=== PATIENT | female | born 1940 | race Caucasian/White ===

== ENCOUNTER 2017-10-26 14:58 | Inpatient (IN) | payer OTHER ==
[2017-10-26] MEDS ORDERED: HYDROMORPHONE HCL 2 MG/ML SOL IV ONE (15:12)
[2017-10-26] MEDS ORDERED: HYDROMORPHONE 1 MG/ML SYRINGE ONE (15:14)
[2017-10-26] MEDS ORDERED: KETOROLAC TROMETHAMINE 30 MG/ML SOL IV ONE (16:26)
[2017-10-26] MEDS ORDERED: KETOROLAC TROMETHAMINE 30 MG/ML SOL ONE (16:28)
[2017-10-26] MEDS: SODIUM CHLORIDE 0.9% FLUSH 10 ML SOL IV PRN (16:32)
[2017-10-26 16:33] LABS: BASOPHILS % (AUTO) 1 % (0-3); EOSINOPHILS % (AUTO) 3 % (0-9); HEMATOCRIT 39 % (35-47); MEAN CORPUSCULAR VOLUME 85 fL (81-99); MONOCYTES % (AUTO) 6.4 % (0-12); NEUTROPHILS % (AUTO) 66.7 % (37-80)
[2017-10-26 16:54] LABS: ALBUMIN 3.1 gm/dl (3.4-5.0); CALCIUM 8.8 mg/dl (8.5-10.1); POTASSIUM 3.8 mMol/L (3.5-5.1)
[2017-10-26] MEDS ORDERED: IBUPROFEN 600 MG TAB PO PRN (17:16)
[2017-10-26] MEDS ORDERED: NALOXONE HYDROCHLORIDE 0.4 MG/ML SOL IV PRN (17:17)
[2017-10-26] MEDS: ACETAMINOPHEN 325 MG PO PRN (19:19)
[2017-10-26] MEDS ORDERED: AMITRIPTYLINE 10 MG TAB PO SCH (21:00)
[2017-10-26] MEDS ORDERED: AMITRIPTYLINE 25 MG TAB ONE (21:30)
[2017-10-26] MEDS: CARVEDILOL 12.5 MG TAB PO SCH (21:52)
[2017-10-26] MEDS: ATORVASTATIN 10 MG TAB PO SCH (21:52)
[2017-10-27] MEDS: SODIUM CHLORIDE 0.9% FLUSH 10 ML SOL IV PRN (00:30)
[2017-10-27] MEDS: HYDROMORPHONE HCL 2 MG/ML SOL IV PRN ×3 (00:31→07:52)
[2017-10-27] MEDS ORDERED: ONDANSETRON HCL 4 MG/2 ML SOL IV PRN (04:41)
[2017-10-27] MEDS ORDERED: OMEPRAZOLE 20 MG CAPSULE PO SCH (07:00)
[2017-10-27] MEDS ORDERED: GLIMEPIRIDE 2 MG TAB PO SCH ×2 (08:00→16:00)
[2017-10-27] MEDS: CARVEDILOL 12.5 MG TAB PO SCH ×2 (08:11→20:22)
[2017-10-27] MEDS: PANTOPRAZOLE SODIUM 40 MG ECT PO SCH (08:14)
[2017-10-27] MEDS: POTASSIUM CHLORIDE 10 MEQ TER PO SCH (08:14)
[2017-10-27] MEDS: FUROSEMIDE 40 MG TAB PO SCH (08:14)
[2017-10-27] MEDS ORDERED: SODIUM CHLORIDE 0.9% 1000ML 1,000 ML IV SCH (08:15)
[2017-10-27] MEDS: FLUOXETINE HYDROCHLORIDE 10 MG CAP PO SCH (08:15)
[2017-10-27 08:36] LABS: BASOPHILS % (AUTO) 1 % (0-3); EOSINOPHILS % (AUTO) 1 % (0-9); HEMATOCRIT 41 % (35-47); MEAN CORPUSCULAR VOLUME 87 fL (81-99); MONOCYTES % (AUTO) 8.1 % (0-12); NEUTROPHILS % (AUTO) 75.8 % (37-80)
[2017-10-27 08:49] LABS: CALCIUM 9.3 mg/dl (8.5-10.1); POTASSIUM 4.7 mMol/L (3.5-5.1)
[2017-10-27] MEDS ORDERED: HYDROMORPHONE HCL 2 MG/ML SOL IV PRN (09:00)
[2017-10-27] MEDS ORDERED: PIOGLITAZONE HYDROCHLORIDE 15 MG PO SCH (09:00)
[2017-10-27] MEDS ORDERED: SODIUM CHLORIDE 0.9% 500 ML 500 ML IV ONE ×2 (10:38→10:59)
[2017-10-27 11:17] LABS: APPEARANCE,URINE Clear; BILIRUBIN,URINE NEGATIVE (NEGATIVE); COLOR,URINE Yellow; GLUCOSE, URINE (UA) NEGATIVE (NEGATIVE); KETONES,URINE TRACE (NEGATIVE); LEUKOCYTE ESTERASE ,URINE NEGATIVE (NEGATIVE); NITRATE,URINE NEGATIVE (NEGATIVE); OCCULT BLOOD,URINE NEGATIVE (NEG-TRACE); PH,URINE 5.5; UROBILINOGEN,URINE 0.2 (0.2-1.0 EU)
[2017-10-27] MEDS: SODIUM CHLORIDE 0.9% 1000ML 1,000 ML IV SCH ×3 (11:30→20:10)
[2017-10-27 11:40] LABS: RBC,URINE 0-2 (0-3AV/HPF); WBC,URINE 0-1 (0-5AV/HPF)
[2017-10-27] MEDS: APAP/HYDROCODONE 325/5 TAB PO PRN ×2 (14:04→20:21)
[2017-10-27 16:19] LABS: CALCIUM 8.8 mg/dl (8.5-10.1); POTASSIUM 4.4 mMol/L (3.5-5.1)
[2017-10-27] MEDS: NOVOLOG FLEXPEN SC SCH ×2 (17:13→20:24)
[2017-10-27] MEDS: SODIUM CHLORIDE 0.9% 500 ML 500 ML IV ONE (18:00)
[2017-10-27] MEDS: ATORVASTATIN 10 MG TAB PO SCH (20:22)
[2017-10-27] MEDS ORDERED: AMITRIPTYLINE 25 MG TAB PO SCH (21:00)
[2017-10-28] MEDS: APAP/HYDROCODONE 325/5 TAB PO PRN (02:57)
[2017-10-28] MEDS: SODIUM CHLORIDE 0.9% 1000ML 1,000 ML IV SCH (03:06)
[2017-10-28] MEDS: NOVOLOG FLEXPEN SC SCH ×4 (06:53→20:55)
[2017-10-28 07:31] LABS: BASOPHILS % (AUTO) 1 % (0-3); EOSINOPHILS % (AUTO) 3 % (0-9); HEMATOCRIT 31 % (35-47); MEAN CORPUSCULAR HGB CONC 32.7 gm/dl (32.0-36.0); MEAN CORPUSCULAR VOLUME 86 fL (81-99); MONOCYTES % (AUTO) 8.3 % (0-12); NEUTROPHILS % (AUTO) 68.9 % (37-80)
[2017-10-28 08:06] LABS: CALCIUM 8.4 mg/dl (8.5-10.1); POTASSIUM 3.9 mMol/L (3.5-5.1)
[2017-10-28] MEDS: CARVEDILOL 12.5 MG TAB PO SCH ×2 (09:02→20:52)
[2017-10-28] MEDS: POTASSIUM CHLORIDE 10 MEQ TER PO SCH (09:03)
[2017-10-28] MEDS: FUROSEMIDE 40 MG TAB PO SCH (09:03)
[2017-10-28] MEDS: FLUOXETINE HYDROCHLORIDE 10 MG CAP PO SCH (09:03)
[2017-10-28] MEDS: PANTOPRAZOLE SODIUM 40 MG ECT PO SCH (09:03)
[2017-10-28] MEDS: OXYCODONE HYDROCHLORIDE 5 MG TAB PO PRN ×3 (11:49→23:33)
[2017-10-28] MEDS: ACETAMINOPHEN 325 MG PO PRN ×2 (11:49→17:30)
[2017-10-28] MEDS: ATORVASTATIN 10 MG TAB PO SCH (20:52)
[2017-10-28] MEDS: SODIUM CHLORIDE 0.9% FLUSH 10 ML SOL IV PRN (20:52)
[2017-10-29] MEDS: OXYCODONE HYDROCHLORIDE 5 MG TAB PO PRN ×3 (07:48→21:31)
[2017-10-29] MEDS: NOVOLOG FLEXPEN SC SCH ×4 (07:55→21:35)
[2017-10-29 08:17] LABS: CALCIUM 8.8 mg/dl (8.5-10.1); POTASSIUM 4.1 mMol/L (3.5-5.1)
[2017-10-29] MEDS: POTASSIUM CHLORIDE 10 MEQ TER PO SCH (08:34)
[2017-10-29] MEDS: CARVEDILOL 12.5 MG TAB PO SCH ×2 (08:34→21:21)
[2017-10-29] MEDS: FUROSEMIDE 40 MG TAB PO SCH (08:34)
[2017-10-29] MEDS: PANTOPRAZOLE SODIUM 40 MG ECT PO SCH (08:35)
[2017-10-29] MEDS: FLUOXETINE HYDROCHLORIDE 10 MG CAP PO SCH (08:35)
[2017-10-29] MEDS: ACETAMINOPHEN 325 MG PO PRN (12:09)
[2017-10-29] MEDS: ATORVASTATIN 10 MG TAB PO SCH (21:21)
[2017-10-30 07:03] VITALS: PULSE 78; RESP 18
[2017-10-30 08:37] VITALS: BP 160/87; TEMP 97.4; O2SAT 93
[2017-10-30] MEDS: OXYCODONE HYDROCHLORIDE 5 MG TAB PO PRN (09:14)
[2017-10-30] MEDS: CARVEDILOL 12.5 MG TAB PO SCH (09:14)
[2017-10-30] MEDS: FUROSEMIDE 40 MG TAB PO SCH (09:15)
[2017-10-30] MEDS: PANTOPRAZOLE SODIUM 40 MG ECT PO SCH (09:15)
[2017-10-30] MEDS: POTASSIUM CHLORIDE 10 MEQ TER PO SCH (09:15)
[2017-10-30] MEDS: FLUOXETINE HYDROCHLORIDE 10 MG CAP PO SCH (09:15)
== END 2017-10-30 10:47 | disposition swing bed (61) | DRG 563 ==
LOC: ED 14:58 → UNDOADMOB 17:00 → ACUTE CARE 17:00 → OBSVTOIN 10-27 10:35
PROVIDERS: ADMIT Family Medicine; ATTEND Family Medicine
PROC: 2W39X3Z Immobilization of Left Upper Extremity using Brace (ICD-10-PCS; principal; 2017-10-27)
PROC: F02Z1ZZ Dressing Assessment (ICD-10-PCS; 2017-10-28)
PROC: F02Z0ZZ Bathing/Showering Assessment (ICD-10-PCS; 2017-10-28)
PROC: F02Z3ZZ Grooming/Personal Hygiene Assessment (ICD-10-PCS; 2017-10-28)
DX: S42.252A Displaced fracture of greater tuberosity of left humerus, initial encounter for closed fracture (principal); E11.9 Type 2 diabetes mellitus without complications; W19.XXXA Unspecified fall, initial encounter; M54.2 Cervicalgia; Z86.79 Personal history of other diseases of the circulatory system
CPT/HCPCS: 36415; 71045; 72040; 72125; 73020; 73030; 80048; 80053; 81001; 82962; 85025; 85610; 94762; 96374; 96375; 99284; 99285; J1170; J1885; J2405; J1815

== ENCOUNTER 2017-10-30 08:48 | Inpatient (IN) | payer OTHER ==
[2017-10-30] MEDS ORDERED: ALPRAZOLAM 0.25 MG TAB PO PRN (10:51)
[2017-10-30] MEDS: GLIMEPIRIDE 2 MG TAB PO SCH ×2 (12:14→12:15)
[2017-10-30] MEDS: ACETAMINOPHEN 325 MG PO PRN ×2 (13:45→20:20)
[2017-10-30] MEDS: TRAMADOL HYDROCHLORIDE 50 MG TAB PO PRN ×2 (13:45→20:20)
[2017-10-30] MEDS: ASPIRIN 325 MG TAB PO SCH (20:20)
[2017-10-30] MEDS: ATORVASTATIN 10 MG TAB PO SCH (20:20)
[2017-10-30] MEDS: CARVEDILOL 12.5 MG TAB PO SCH (20:20)
[2017-10-30] MEDS: AMITRIPTYLINE 25 MG TAB PO SCH (20:24)
[2017-10-31] MEDS: TRAMADOL HYDROCHLORIDE 50 MG TAB PO PRN ×3 (02:00→13:52)
[2017-10-31] MEDS: ACETAMINOPHEN 325 MG PO PRN ×4 (02:00→20:39)
[2017-10-31] MEDS: PANTOPRAZOLE SODIUM 40 MG ECT PO SCH (06:39)
[2017-10-31] MEDS: GLIMEPIRIDE 2 MG TAB PO SCH ×2 (08:48)
[2017-10-31] MEDS: POTASSIUM CHLORIDE 10 MEQ TER PO SCH (08:48)
[2017-10-31] MEDS: FUROSEMIDE 40 MG TAB PO SCH (08:48)
[2017-10-31] MEDS: FLUOXETINE HYDROCHLORIDE 10 MG CAP PO SCH (08:48)
[2017-10-31] MEDS: CARVEDILOL 12.5 MG TAB PO SCH ×2 (08:48→20:34)
[2017-10-31] MEDS: MULTIVITAMIN2 1 EA TAB PO SCH (08:49)
[2017-10-31] MEDS ORDERED: MULTIVITAMIN2 1 EA TAB PO SCH (09:00)
[2017-10-31] MEDS ORDERED: PANTOPRAZOLE SODIUM 40 MG ECT PO SCH (09:00)
[2017-10-31] MEDS: PIOGLITAZONE HYDROCHLORIDE 15 MG PO SCH (09:00)
[2017-10-31] MEDS: ASPIRIN 325 MG TAB PO SCH (20:33)
[2017-10-31] MEDS: AMITRIPTYLINE 25 MG TAB PO SCH (20:33)
[2017-10-31] MEDS: ATORVASTATIN 10 MG TAB PO SCH (20:34)
[2017-11-01] MEDS: ACETAMINOPHEN 325 MG PO PRN ×2 (03:06→09:34)
[2017-11-01] MEDS: TRAMADOL HYDROCHLORIDE 50 MG TAB PO PRN ×2 (03:06→09:34)
[2017-11-01] MEDS: PANTOPRAZOLE SODIUM 40 MG ECT PO SCH (06:04)
[2017-11-01] MEDS: GLIMEPIRIDE 2 MG TAB PO SCH ×2 (09:34→16:49)
[2017-11-01] MEDS: POTASSIUM CHLORIDE 10 MEQ TER PO SCH (09:35)
[2017-11-01] MEDS: FUROSEMIDE 40 MG TAB PO SCH (09:35)
[2017-11-01] MEDS: CARVEDILOL 12.5 MG TAB PO SCH ×2 (09:35→20:49)
[2017-11-01] MEDS: MULTIVITAMIN2 1 EA TAB PO SCH (09:36)
[2017-11-01] MEDS: FLUOXETINE HYDROCHLORIDE 10 MG CAP PO SCH (09:36)
[2017-11-01] MEDS: PIOGLITAZONE HYDROCHLORIDE 15 MG PO SCH (13:13)
[2017-11-01] MEDS: OXYCODONE HYDROCHLORIDE 5 MG TAB PO PRN ×2 (14:52→19:53)
[2017-11-01] MEDS: ATORVASTATIN 10 MG TAB PO SCH (20:50)
[2017-11-01] MEDS: AMITRIPTYLINE 25 MG TAB PO SCH (20:50)
[2017-11-01] MEDS: ASPIRIN 325 MG TAB PO SCH (20:50)
[2017-11-02] MEDS: OXYCODONE HYDROCHLORIDE 5 MG TAB PO PRN ×3 (06:22→20:47)
[2017-11-02] MEDS: PANTOPRAZOLE SODIUM 40 MG ECT PO SCH (06:22)
[2017-11-02] MEDS: PIOGLITAZONE HYDROCHLORIDE 15 MG PO SCH (09:14)
[2017-11-02] MEDS: GLIMEPIRIDE 2 MG TAB PO SCH ×3 (09:15→19:05)
[2017-11-02] MEDS: FUROSEMIDE 40 MG TAB PO SCH (09:18)
[2017-11-02] MEDS: FLUOXETINE HYDROCHLORIDE 10 MG CAP PO SCH (09:18)
[2017-11-02] MEDS: POTASSIUM CHLORIDE 10 MEQ TER PO SCH (09:18)
[2017-11-02] MEDS: CARVEDILOL 12.5 MG TAB PO SCH ×2 (09:18→20:16)
[2017-11-02] MEDS: MULTIVITAMIN2 1 EA TAB PO SCH (09:19)
[2017-11-02 10:55] LABS: APPEARANCE,URINE Cloudy; BILIRUBIN,URINE 1+ (NEGATIVE); COLOR,URINE Yellow; GLUCOSE, URINE (UA) NEGATIVE (NEGATIVE); KETONES,URINE TRACE (NEGATIVE); LEUKOCYTE ESTERASE ,URINE 3+ (NEGATIVE); NITRATE,URINE POSITIVE (NEGATIVE); OCCULT BLOOD,URINE 2+ (NEG-TRACE); PH,URINE 6.5
[2017-11-02 11:10] LABS: ICTOTEST,URINE NEGATIVE (NEGATIVE); RBC,URINE UNABLE (0-3AV/HPF); WBC,URINE PACKED (0-5AV/HPF)
[2017-11-02] MEDS: SULFAMETHOXAZOLE/TRIMETHOPRI 800/160 MG PO SCH ×2 (12:17→21:42)
[2017-11-02] MEDS: TRAMADOL HYDROCHLORIDE 50 MG TAB PO PRN (13:42)
[2017-11-02] MEDS: ASPIRIN 325 MG TAB PO SCH (20:16)
[2017-11-02] MEDS: AMITRIPTYLINE 25 MG TAB PO SCH (20:16)
[2017-11-02] MEDS: ATORVASTATIN 10 MG TAB PO SCH (20:16)
[2017-11-03] MEDS: OXYCODONE HYDROCHLORIDE 5 MG TAB PO PRN ×3 (04:41→21:12)
[2017-11-03] MEDS: PANTOPRAZOLE SODIUM 40 MG ECT PO SCH (06:02)
[2017-11-03 08:19] VITALS: RESP 20
[2017-11-03] MEDS: PIOGLITAZONE HYDROCHLORIDE 15 MG PO SCH (08:45)
[2017-11-03] MEDS: CARVEDILOL 12.5 MG TAB PO SCH ×2 (08:46→21:12)
[2017-11-03] MEDS: GLIMEPIRIDE 2 MG TAB PO SCH ×3 (08:46→16:41)
[2017-11-03] MEDS: POTASSIUM CHLORIDE 10 MEQ TER PO SCH (08:46)
[2017-11-03] MEDS: FLUOXETINE HYDROCHLORIDE 10 MG CAP PO SCH (08:47)
[2017-11-03] MEDS: FUROSEMIDE 40 MG TAB PO SCH (08:47)
[2017-11-03] MEDS: MULTIVITAMIN2 1 EA TAB PO SCH (08:47)
[2017-11-03] MEDS: SULFAMETHOXAZOLE/TRIMETHOPRI 800/160 MG PO SCH ×2 (08:51→21:12)
[2017-11-03] MEDS: TRAMADOL HYDROCHLORIDE 50 MG TAB PO PRN ×3 (08:51→23:12)
[2017-11-03] MEDS: ACETAMINOPHEN 325 MG PO PRN ×2 (13:03→23:12)
[2017-11-03] MEDS: AMITRIPTYLINE 25 MG TAB PO SCH (21:12)
[2017-11-03] MEDS: ASPIRIN 325 MG TAB PO SCH (21:12)
[2017-11-03] MEDS: ATORVASTATIN 10 MG TAB PO SCH (21:12)
[2017-11-04] MEDS: TRAMADOL HYDROCHLORIDE 50 MG TAB PO PRN ×2 (06:24→12:32)
[2017-11-04] MEDS: PANTOPRAZOLE SODIUM 40 MG ECT PO SCH (06:24)
[2017-11-04] MEDS: ACETAMINOPHEN 325 MG PO PRN ×2 (06:24→12:32)
[2017-11-04 08:08] VITALS: BP 129/66; PULSE 62; TEMP 97.6; O2SAT 99
[2017-11-04] MEDS: GLIMEPIRIDE 2 MG TAB PO SCH ×2 (09:03→09:25)
[2017-11-04] MEDS: PIOGLITAZONE HYDROCHLORIDE 15 MG PO SCH (09:03)
[2017-11-04] MEDS: SULFAMETHOXAZOLE/TRIMETHOPRI 800/160 MG PO SCH (09:05)
[2017-11-04] MEDS: FUROSEMIDE 40 MG TAB PO SCH (09:05)
[2017-11-04] MEDS: CARVEDILOL 12.5 MG TAB PO SCH (09:05)
[2017-11-04] MEDS: POTASSIUM CHLORIDE 10 MEQ TER PO SCH (09:05)
[2017-11-04] MEDS: FLUOXETINE HYDROCHLORIDE 10 MG CAP PO SCH (09:06)
[2017-11-04] MEDS: MULTIVITAMIN2 1 EA TAB PO SCH (09:06)
== END 2017-11-04 13:25 | disposition home or self-care (01) | DRG 560 ==
LOC: ACUTE CARE 10:52
PROVIDERS: ADMIT Family Medicine; ATTEND Family Medicine
PROC: F01ZDFZ Gait and/or Balance Assessment using Assistive, Adaptive, Supportive or Protective Equipment (ICD-10-PCS; principal; 2017-10-30)
PROC: F02Z1ZZ Dressing Assessment (ICD-10-PCS; 2017-10-30)
PROC: F02Z0ZZ Bathing/Showering Assessment (ICD-10-PCS; 2017-10-30)
PROC: F02Z3ZZ Grooming/Personal Hygiene Assessment (ICD-10-PCS; 2017-10-30)
DX: S42.212D Unspecified displaced fracture of surgical neck of left humerus, subsequent encounter for fracture with routine healing (principal); N39.0 Urinary tract infection, site not specified; E11.9 Type 2 diabetes mellitus without complications; I16.0 Hypertensive urgency
CPT/HCPCS: 81001; 82962; 87077; 87088; 87186; 94760; A9270; A9270-GY

== ENCOUNTER 2017-11-17 09:33 | Outpatient (CLI) | payer OTHER ==
[2017-11-04 08:08] VITALS: O2SAT 99
== END 2017-11-17 09:34 | disposition home or self-care (01) | DRG 561 ==
LOC: RAD 09:33
PROVIDERS: ATTEND Orthopaedic Surgery
DX: S42.252D Displaced fracture of greater tuberosity of left humerus, subsequent encounter for fracture with routine healing (principal); S42.212D Unspecified displaced fracture of surgical neck of left humerus, subsequent encounter for fracture with routine healing
CPT/HCPCS: 73030

== ENCOUNTER 2017-12-15 11:25 | Outpatient (CLI) | payer OTHER ==
[2017-12-02 11:40] VITALS: O2SAT 88
== END 2017-12-15 11:26 | disposition home or self-care (01) | DRG 561 ==
LOC: CONVCARE 11:25
PROVIDERS: ATTEND Orthopaedic Surgery
DX: S42.202D Unspecified fracture of upper end of left humerus, subsequent encounter for fracture with routine healing (principal); E11.9 Type 2 diabetes mellitus without complications; Z79.4 Long term (current) use of insulin
CPT/HCPCS: 73030

== ENCOUNTER 2017-12-28 16:36 | Emergency (ER) | payer OTHER ==
[2017-12-28 16:41] VITALS: BP 153/95; PULSE 86; RESP 18; TEMP 97.6; O2SAT 98
[2017-12-28] MEDS ORDERED: DOXYCYCLINE 100 MG TAB PO ONE (17:07)
[2017-12-28] MEDS ORDERED: DOXYCYCLINE 100 MG TAB ONE (17:26)
== END 2017-12-28 17:35 | disposition home or self-care (01) | DRG 607 ==
LOC: ED 16:36
DX: R21 Rash and other nonspecific skin eruption (principal)
CPT/HCPCS: 99282; A9270-GY

== ENCOUNTER 2018-02-02 10:55 | Outpatient (CLI) | payer OTHER ==
[2017-12-28 16:41] VITALS: O2SAT 98
== END 2018-02-02 10:56 | disposition home or self-care (01) | DRG 561 ==
LOC: CONVCARE 10:55
PROVIDERS: ATTEND Orthopaedic Surgery
DX: S42.202D Unspecified fracture of upper end of left humerus, subsequent encounter for fracture with routine healing (principal)
CPT/HCPCS: 73030

== ENCOUNTER 2018-02-06 18:15 | Emergency (ER) | payer OTHER ==
[2018-02-06] MEDS: SODIUM CHLORIDE 0.9% 1000ML 1,000 ML IV ONE ×2 (18:23→18:32)
[2018-02-06 18:31] LABS: BASOPHILS % (AUTO) 1 % (0-3); EOSINOPHILS % (AUTO) 1 % (0-9); HEMATOCRIT 43 % (35-47); HEMOGLOBIN 14.4 gm/dl (12.0-15.5); LYMPHOCYTES % (AUTO) 24.6 % (10-50); MEAN CORPUSCULAR HEMOGLOBIN 27.5 pg (27.0-32.0); MEAN CORPUSCULAR HGB CONC 33.6 gm/dl (32.0-36.0); MEAN CORPUSCULAR VOLUME 82 fL (81-99); MONOCYTES % (AUTO) 8.2 % (0-12); NEUTROPHILS % (AUTO) 65.8 % (37-80)
[2018-02-06] MEDS ORDERED: SODIUM CHLORIDE 0.9% 1000ML 1,000 ML IV ONE (18:32)
[2018-02-06] MEDS ORDERED: SODIUM CHLORIDE 0.9% FLUSH 10 ML SOL IV PRN (18:38)
[2018-02-06 18:52] LABS: ALBUMIN 3.4 gm/dl (3.4-5.0); BILIRUBIN,TOTAL 0.6 mg/dl (0.2-1.0); CALCIUM 8.9 mg/dl (8.5-10.1); CARBON DIOXIDE 32.2 mEq/L (21-32); CREATININE 1.98 mg/dl (0.60-1.00); POTASSIUM 3.2 mMol/L (3.5-5.1); TOTAL PROTEIN 7.2 gm/dl (6.4-8.2)
[2018-02-06 19:15] VITALS: RESP 16; TEMP 97.3
[2018-02-06] MEDS ORDERED: ONDANSETRON HCL 4 MG/2 ML SOL ONE (19:30)
[2018-02-06] MEDS ORDERED: ONDANSETRON HCL 4 MG/2 ML SOL IV ONE (19:32)
[2018-02-06] MEDS ORDERED: POTASSIUM CHLORIDE 2 MEQ/ML SOL IV ONE (19:52)
[2018-02-06 19:55] LABS: APPEARANCE,URINE Clear; BILIRUBIN,URINE NEGATIVE (NEGATIVE); COLOR,URINE Yellow; GLUCOSE, URINE (UA) NEGATIVE (NEGATIVE); KETONES,URINE NEGATIVE (NEGATIVE); LEUKOCYTE ESTERASE ,URINE TRACE (NEGATIVE); NITRATE,URINE NEGATIVE (NEGATIVE); OCCULT BLOOD,URINE NEGATIVE (NEG-TRACE); PH,URINE 5.5; UROBILINOGEN,URINE 0.2 (0.2-1.0 EU)
[2018-02-06] MEDS ORDERED: SODIUM CHLORIDE 0.9% 1000ML 1,000 ML with POTASSIUM CHLORIDE 2 MEQ/ML 20 MEQ IV SCH (20:00)
[2018-02-06 20:03] LABS: BACTERIA NEGATIVE (< 1+); CRYSTALS NEGATIVE (0-3 AVE/HPF); EPITHELIAL CELLS 0-3 (SQUAMOUS); RBC,URINE NEG (0-3AV/HPF); WBC,URINE 0-2 (0-5AV/HPF)
[2018-02-06 21:27] VITALS: BP 121/57; PULSE 67; O2SAT 99
== END 2018-02-06 21:45 | disposition home or self-care (01) | DRG 392 ==
LOC: ED 18:15
DX: K29.70 Gastritis, unspecified, without bleeding (principal); E86.0 Dehydration; R29.6 Repeated falls; Z79.899 Other long term (current) drug therapy; E87.6 Hypokalemia
CPT/HCPCS: 80053; 81001; 85025; 99285; J2405; J3480

== ENCOUNTER 2018-05-18 13:37 | Outpatient (CLI) | payer OTHER ==
[2018-02-06 21:27] VITALS: O2SAT 99
== END 2018-05-18 13:38 | disposition home or self-care (01) | DRG 556 ==
LOC: CONVCARE 13:37
PROVIDERS: ATTEND Orthopaedic Surgery
DX: M25.512 Pain in left shoulder (principal); S42.202D Unspecified fracture of upper end of left humerus, subsequent encounter for fracture with routine healing
CPT/HCPCS: 73030

== ENCOUNTER 2018-06-01 09:00 | Outpatient (CLI) | payer OTHER ==
[2018-02-06 21:27] VITALS: O2SAT 99
== END 2018-06-01 09:01 | disposition home or self-care (01) | DRG 556 ==
LOC: CONVCARE 09:00
PROVIDERS: ATTEND Orthopaedic Surgery
DX: M25.512 Pain in left shoulder (principal); S42.202G Unspecified fracture of upper end of left humerus, subsequent encounter for fracture with delayed healing
CPT/HCPCS: 73200

== ENCOUNTER 2018-12-28 08:12 | Emergency (ER) | payer OTHER ==
[2018-12-28 08:41] VITALS: RESP 20
[2018-12-28] MEDS ORDERED: KETOROLAC TROMETHAMINE 30 MG/ML SOL IM ONE (09:28)
[2018-12-28] MEDS ORDERED: KETOROLAC TROMETHAMINE 30 MG/ML SOL ONE (09:31)
[2018-12-28 11:27] VITALS: TEMP 97.4
[2018-12-28 11:29] VITALS: BP 162/76; PULSE 53; O2SAT 95
[2018-12-28] MEDS ORDERED: APAP/HYDROCODONE 1 EACH TABLET PO ONE (17:12)
[2018-12-28] MEDS ORDERED: NAPROXEN 500 MG TAB PO ONE (17:13)
[2018-12-28 17:41] LABS: CALCIUM 8.9 mg/dl (8.5-10.1); CREATININE 1.37 mg/dl (0.60-1.00); POTASSIUM 3.8 mMol/L (3.5-5.1)
[2018-12-28 17:52] LABS: CARBON DIOXIDE 33.1 mEq/L (21-32)
== END 2018-12-28 18:15 | disposition home or self-care (01) | DRG 556 ==
LOC: ED 08:12 → UNDOADMOB 11:06 → ACUTE CARE 11:06
PROVIDERS: ADMIT Family Medicine; ATTEND Family Medicine
PROC: F01ZBZZ Bed Mobility Assessment (ICD-10-PCS; principal; 2018-12-28)
PROC: F01ZCZZ Transfer Assessment (ICD-10-PCS; 2018-12-28)
DX: M79.605 Pain in left leg (principal)
CPT/HCPCS: 36415; 73552; 80048; 96372; 99219; 99283; J1885

== ENCOUNTER 2019-02-16 09:52 | Day surgery (SDC) | payer OTHER ==
[2019-02-16] MEDS ORDERED: ACETAZOLAMIDE 250 MG PO ONE (10:02)
[2019-02-16] MEDS: CYCLOPENTOLATE 1% SOL ONE ×2 (10:18→10:30)
[2019-02-16] MEDS: PHENYLEPHRINE HCL 10% OPHTHAL SOL ONE ×2 (10:18→10:30)
[2019-02-16] MEDS: TETRACAINE HCL 0.5 % 1 DROP SOL ONE ×3 (10:18→11:17)
[2019-02-16] MEDS: KETOROLAC 0.5% OPTH 60 DROP SOL ONE ×2 (10:19→10:31)
[2019-02-16 10:23] VITALS: O2SAT 96
[2019-02-16] MEDS ORDERED: MIDAZOLAM 2 MG/2 ML SOL ONE (10:49)
[2019-02-16] MEDS ORDERED: FENTANYL 100MCG/2ML SOL ONE (10:49)
[2019-02-16] MEDS ORDERED: BSS 500 ML 500 ML IR ONE (11:12)
[2019-02-16] MEDS ORDERED: POVIDONE IODINE 5% SOL ONE (11:12)
[2019-02-16] MEDS ORDERED: LIDOCAINE HCL 1% MPF 30 SOL ONE (11:12)
[2019-02-16] MEDS: IMPRIMIS ONE ×2 (11:23→11:36)
[2019-02-16 11:48] VITALS: BP 155/85; PULSE 54; RESP 20; TEMP 96.8
== END 2019-02-16 12:10 | disposition home or self-care (01) | DRG 125 ==
LOC: SURG 09:52
PROVIDERS: ATTEND Ophthalmology
DX: H25.89 Other age-related cataract (principal)
CPT/HCPCS: J2250; J3010; A9270-GY; J2001

== ENCOUNTER 2019-03-16 07:23 | Day surgery (SDC) | payer OTHER ==
[2019-03-16] MEDS ORDERED: MIDAZOLAM 2 MG/2 ML SOL ONE (07:30)
[2019-03-16] MEDS ORDERED: ACETAZOLAMIDE 250 MG PO ONE (07:31)
[2019-03-16] MEDS: TETRACAINE HCL 0.5 % 1 DROP SOL ONE ×3 (07:47→08:57)
[2019-03-16] MEDS: PHENYLEPHRINE HCL 10% OPHTHAL SOL ONE ×2 (07:47→07:59)
[2019-03-16] MEDS: KETOROLAC 0.5% OPTH 60 DROP SOL ONE ×2 (07:48→08:00)
[2019-03-16] MEDS: CYCLOPENTOLATE 1% SOL ONE ×2 (07:48→08:00)
[2019-03-16 07:58] VITALS: TEMP 98.5; O2SAT 94
[2019-03-16] MEDS ORDERED: POVIDONE IODINE 5% SOL ONE (08:51)
[2019-03-16] MEDS ORDERED: LIDOCAINE HCL 1% MPF 30 SOL ONE (08:51)
[2019-03-16] MEDS ORDERED: BSS 500 ML 500 ML IR ONE (08:51)
[2019-03-16] MEDS ORDERED: IMPRIMIS ONE (08:51)
[2019-03-16 09:28] VITALS: BP 127/62; PULSE 59; RESP 20
== END 2019-03-16 09:45 | disposition home or self-care (01) | DRG 125 ==
LOC: SURG 07:23
PROVIDERS: ATTEND Ophthalmology
DX: H25.89 Other age-related cataract (principal); E11.9 Type 2 diabetes mellitus without complications
CPT/HCPCS: J2250; A9270-GY; J2001